=== PATIENT | male | born 1945 | race Caucasian/White ===

== ENCOUNTER 2016-09-10 11:08 | Emergency (ER) | payer OTHER ==
[~2016-09-10] VITALS: Ht 182.9 cm; Wt 88.5 kg
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
[2016-09-10] MEDS ORDERED: CYCLOBENZAPRINE 10 MG TABLET. PO ONE (12:45)
[2016-09-10] MEDS ORDERED: NAPROXEN 500 MG TABLET PO ONE (12:45)
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
[2016-09-10] MEDS ORDERED: NAPR375T3 PO (13:40)
[2016-09-10] MEDS ORDERED: CYCL10TA2 PO (13:40)
[2016-09-10 13:46] VITALS: BP 160/82
--- NOTE | 2016-09-10 14:43 | EKG ---
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
== END 2016-09-10 13:55 | disposition home or self-care (01) ==
LOC: ER 11:08
DX: R07.89 Other chest pain (principal); M54.6 Pain in thoracic spine; E03.9 Hypothyroidism, unspecified; E11.9 Type 2 diabetes mellitus without complications; I10 Essential (primary) hypertension; Z95.0 Presence of cardiac pacemaker; V49.49XA Driver injured in collision with other motor vehicles in traffic accident, initial encounter; Y93.89 Activity, other specified; Y99.8 Other external cause status; Y92.488 Other paved roadways as the place of occurrence of the external cause
CPT/HCPCS: 71020; 72072; 93005; 99284-25